=== PATIENT | female | born 1990 | race Caucasian/White ===

== ENCOUNTER 2022-01-31 22:04 | Emergency (ER) | payer OTHER ==
[2022-01-31] MEDS ORDERED: LORazepam 1 MG Tab PO ONE (22:38)
[2022-01-31] MEDS ORDERED: Sodium Chloride 0.9% 500 ML IV SCH (22:45)
[2022-01-31 23:39] LABS: BLOOD UREA NITROGEN,BUN 6 mg/dL (7.0-18.0); CARBON DIOXIDE,CO2 23.8 mmol/L (21.0-32.0); CHLORIDE,CL 104 mmol/L (98-107); ESTIMATED GFR 102 mL/min (>60); GLUCOSE RANDOM 144 mg/dL (74-106); POTASSIUM,K 3.1 mmol/L (3.5-5.1); SODIUM,NA 139 mmol/L (136-145)
[2022-01-31] MEDS ORDERED: Potassium Chloride 20 MEQ Tab.ER PO ONE (23:58)
[2022-02-01] MEDS ORDERED: LORazepam 1 MG Tab PO ONE (00:38)
[2022-02-01] MEDS ORDERED: Lisinopril 10 MG Tab ONE (00:42)
[2022-02-01] MEDS ORDERED: Lisinopril 10 MG Tab PO SCH (09:00)
== END 2022-02-01 01:30 | disposition home or self-care (01) ==
LOC: MW.ED 22:04
DX: R55 Syncope and collapse (principal); Z88.1 Allergy status to other antibiotic agents; Z91.011 Allergy to milk products
CPT/HCPCS: 36415; 80053; 81001; 81025; 84443; 84484; 85025; 93005; 96360; 99284-25; A9270-GY; J7040

== ENCOUNTER 2022-02-01 17:41 | Emergency (ER) | payer OTHER ==
[2022-02-01] MEDS ORDERED: Ketorolac 30 MG/ML SDV IVPUSH ONE (19:13)
[2022-02-01] MEDS ORDERED: Sodium Chloride 0.9% 1,000 ML IV ONE (19:13)
[2022-02-01] MEDS ORDERED: Ondansetron 4 MG/2 ML SDV IVPUSH ONE (19:13)
[2022-02-01] MEDS ORDERED: Hydrochlorothiazide 12.5 MG Cap PO STA (20:07)
[2022-02-01 20:42] LABS: CARBON DIOXIDE,CO2 23.1 mmol/L (21.0-32.0); POTASSIUM,K 3.4 mmol/L (3.5-5.1)
[2022-02-01 20:56] LABS: CORONAVIRUS COVID-19 NAA NEGATIVE (NEGATIVE); INFLUENZA A NAA NEGATIVE (NEGATIVE); INFLUENZA B NAA NEGATIVE (NEGATIVE); RESPIRATORY SYNCYTIAL VIR NAA NEGATIVE (NEGATIVE)
== END 2022-02-01 21:24 | disposition home or self-care (01) ==
LOC: MW.ED 17:41
DX: I10 Essential (primary) hypertension (principal); R55 Syncope and collapse; Z88.1 Allergy status to other antibiotic agents; Z91.011 Allergy to milk products; Z79.899 Other long term (current) drug therapy; Z20.822 Contact with and (suspected) exposure to COVID-19
CPT/HCPCS: 0241U; 36415; 80053; 81001; 83935; 84156; 84300; 84484; 85025; 87086; 93005; 96361; 96374; 96375; 99284; A9270; J1885; J2405; J7030

== ENCOUNTER 2022-02-12 03:50 | Emergency (ER) | payer OTHER ==
[2022-02-12] MEDS ORDERED: Sodium Chloride 0.9% 10 ML Syringe FLUSH PRN (04:07)
[2022-02-12] MEDS ORDERED: Sodium Chloride 0.9% 2.5 ML Syringe FLUSH PRN (04:07)
[2022-02-12] MEDS ORDERED: LORazepam 2 MG/ML SDV IVPUSH ONE (04:13)
[2022-02-12] MEDS ORDERED: Sodium Chloride 0.9% 1,000 ML IV ONE (04:13)
[2022-02-12 04:48] LABS: CARBON DIOXIDE,CO2 22.1 mmol/L (21.0-32.0); POTASSIUM,K 2.6 mmol/L (3.5-5.1)
== END 2022-02-12 05:20 | disposition home or self-care (01) ==
LOC: MW.ED 03:50
DX: R00.2 Palpitations (principal); R07.9 Chest pain, unspecified; Z88.1 Allergy status to other antibiotic agents; Z91.011 Allergy to milk products
CPT/HCPCS: 36415; 71045; 80053; 80305; 81001; 83735; 84443; 84484; 84703; 85025; 85379; 93005; 96361; 96374; 99285; J2060; J3490; J7030

== ENCOUNTER 2023-01-23 13:15 | Emergency (ER) | payer OTHER ==
[2023-01-23] MEDS ORDERED: Ketorolac 30 MG/ML SDV IVPUSH STA (14:48)
[2023-01-23] MEDS ORDERED: Sodium Chloride 0.9% 1,000 ML IV STA (14:48)
[2023-01-23] MEDS ORDERED: Sodium Chloride 0.9% 2.5 ML Syringe FLUSH PRN (14:48)
[2023-01-23] MEDS ORDERED: Ondansetron 4 MG/2 ML SDV IVPUSH STA (14:48)
[2023-01-23] MEDS ORDERED: Sodium Chloride 0.9% 10 ML Syringe FLUSH PRN (14:48)
[2023-01-23 15:35] LABS: BASOPHILS ABSOLUTE AUTO 0.02 K/uL (0.00-0.20); BASOPHILS PERCENT AUTO 0.1 % (0.0-1.0); EOSINOPHILS ABSOLUTE AUTO 0.02 K/uL (0.00-0.45); EOSINOPHILS PERCENT AUTO 0.1 % (0.0-6.0); HEMATOCRIT 42.1 % (37.0-47.0); HEMOGLOBIN 15.4 g/dL (12.0-16.0); IMMATURE GRAN ABSOLUTE AUTO 0.09 K/uL (0.00-0.05); IMMATURE GRAN PERCENT AUTO 0.6 % (0.0-0.4); LYMPHOCYTES ABSOLUTE AUTO 0.75 K/uL (1.00-4.80); LYMPHOCYTES PERCENT AUTO 4.8 % (24.0-44.0); MEAN CORPUSCULAR HEMOGLOBIN 33.5 pg (28.0-32.0); MEAN CORPUSCULAR HGB CONC 36.6 g/dL (32.0-36.0); MEAN CORPUSCULAR VOLUME 91.5 fL (83.0-99.0); MEAN PLATELET VOLUME 9.3 fL (9.4-12.3); MONOCYTES ABSOLUTE AUTO 0.88 K/uL (0.00-0.80); MONOCYTES PERCENT AUTO 5.6 % (0.0-8.0); NEUTROPHILS ABSOLUTE AUTO 13.99 K/uL (1.80-7.70); NEUTROPHILS PERCENT AUTO 88.8 % (41.0-71.0); PLATELET COUNT,PLT 267 K/uL (150-400); WHITE BLOOD CELL COUNT,WBC 15.75 K/uL (3.9-11.3)
[2023-01-23 16:15] LABS: ALBUMIN 3.9 g/dL (3.4-5.0); BILIRUBIN TOTAL 0.6 mg/dL (0.2-1.0); CALCIUM 9.4 mg/dL (8.5-10.1); CARBON DIOXIDE,CO2 28.6 mmol/L (21.0-32.0); CREATININE 0.8 mg/dL (0.6-1.0); EST CRCL DRUG DOSING (CG) 84.29 mL/min; MAGNESIUM 1.8 mg/dL (1.8-2.4); POTASSIUM,K 3.4 mmol/L (3.5-5.1); PROTEIN TOTAL,TP 7.9 g/dL (6.4-8.2); TSH ULTRASENSITIVE 0.28 uIU/mL (0.36-3.74)
[2023-01-23 16:35] LABS: APPEARANCE,URINE CLOUDY; BILIRUBIN,URINE NEGATIVE (NEGATIVE); GLUCOSE,URINE NEGATIVE (NEGATIVE); KETONES,URINE 15 mg/dL (NEGATIVE); LEUKOCYTE ESTERASE,URINE SMALL (NEGATIVE); NITRITE,URINE POSITIVE (NEGATIVE); OCCULT BLOOD,URINE MODERATE (NEGATIVE); PH,URINE 6.5 (5.0-8.0); PROTEIN,URINE NEGATIVE (NEGATIVE)
[2023-01-23 16:42] LABS: CORONAVIRUS COVID-19 NAA NEGATIVE (NEGATIVE); INFLUENZA A NAA NEGATIVE (NEGATIVE); INFLUENZA B NAA NEGATIVE (NEGATIVE)
[2023-01-23 16:43] LABS: COLOR,URINE YELLOW
[2023-01-23 16:44] LABS: BACTERIA,URINE 2+ (NEGATIVE); EPITHELIAL CELLS,URINE FEW (NONE-FEW)
== END 2023-01-23 17:17 | disposition home or self-care (01) ==
LOC: MW.ED 13:15
DX: N30.01 Acute cystitis with hematuria (principal); R11.2 Nausea with vomiting, unspecified; R19.7 Diarrhea, unspecified; Z88.1 Allergy status to other antibiotic agents; Z91.011 Allergy to milk products; Z20.822 Contact with and (suspected) exposure to COVID-19
CPT/HCPCS: 0240U; 36415; 71046; 80053; 81001; 83690; 83735; 84443; 84703; 85025; 87077; 87086; 96374; 96375; 99284; J1885; J2405; J7030